=== PATIENT | female | born 2000 | race Caucasian/White ===

== ENCOUNTER 2022-07-28 07:15 | Emergency (ER) | payer OTHER, SELFPAY ==
[2022-07-28 07:24] VITALS: BP 140/87; PULSE 104; RESP 19; TEMP 37; O2SAT 99
--- NOTE | 2022-07-28 07:52 | ED_ITS ---
HPI - Female Genitourinary General Chief complaint: Urogenital-Female Stated complaint: UTI Time Seen by Provider: 07/28/22 07:37 Source: patient Mode of arrival: ambulatory Limitations: no limitations History of Present Illness HPI Narrative: Patient presented to the emergency department complaining of dysuria frequency she was seen in the urgent care yesterday started on nitrofurantoin. Denies any vomiting diarrhea fever MD elicited complaint: dysuria and UTI Onset (ago): day(s) (3) Severity: mild Female Urogenital Radiation: Non-Radiating Quality of pain: cramping Consistency: constant Vaginal discharge: none Vaginal bleeding: none Urinary symptoms: Dysuria Relieving factors: none Patient : No Related Data Previous Rx's Medication Instructions Recorded phenazopyridine 200 mg tablet 200 mg PO TID 6 doses #6 tabs 07/28/22 (Pyridium) Allergies Allergy/AdvReac Type Severity Reaction Status Date / Time sulfamethoxazole Allergy Intermediate NAUSEA, Unverified 05/02/20 19:38 [From BACTRIM] SHAKINESS trimethoprim [From BACTRIM] Allergy Intermediate NAUSEA, Unverified 05/02/20 19:38 SHAKINESS Sulfa (Sulfonamide Allergy Unknown Verified 10/20/18 00:00 Antibiotics) Review of Systems Constitutional: Constitutional: Reports no additional constitutional complaints ENT: Reports system reviewed and no additional complaints, except as documented Cardiovascular: Cardiovascular: Reports no additional cardiovascular complaint s Respiratory: Respiratory: Reports no additional respiratory complaints Genitourinary: Genitourinary: Reports as per HPI and Reports difficulty voiding Neurologic: Reports system reviewed and no additional complaints, except as documented [facility] Social History Social History Advance Directives: Yes Advance Directives Information Provided: Yes Advance Directives on File: No Patient : No Physical Exam Vital Signs: Vital Signs: Last Vital Signs Temp 98.2 F 07/28/22 10:20 Pulse 92 07/28/22 11:15 Resp 16 07/28/22 11:15 BP 115/69 07/28/22 11:15 Pulse Ox 100 07/28/22 11:15 O2 Del Method 07/28/22 11:15 BMI result Body Mass Index 20.0 Const: General: cooperative Nutritional Appearance: average body habitus Orientation/consciousness: patient oriented x3 HEENT: Head: Yes normal to inspection General nose exam: Normal external nose present Face and sinus: Yes normal facial exam Mouth: Normal oral and palatal mucosa present Chest: Chest palpation & inspection: normal inspection of the chest Resp: Effort & Inspection: normal respiratory effort Cardio: Jugular venous distension: no JVD Rate: regular rate GI: Inspection: Yes normal to inspection Palpation (GI): Soft to palpation, not firm, nontender and no guarding Skin: General skin exam: no rashes or lesions noted, elasticity normal and turgor normal Lesions: no lesions Rashes: no rashes Neuro: General: patient oriented x3 Course Reevaluation(s) Reevaluation #1: UA is consistent with the UTI, patient just started yesterday macrobid 100 mg b.i.d. for 5 days, I will add the Pyridium for symptomatic relief of Medical Decision Making Differential Diagnosis Differential Diagnoses: The differential diagnosis associated with the presentation includes uti/std Lab Data MDM Lab Attestation statement: I reviewed the patient's lab results. Labs: Lab Results 07/28/22 07/28/22 Range/Units 08:30 08:30 Urine Color Dark Yellow Urine Appearance Cloudy Urine pH 8.5 (5.0-9.0) Ur Specific [place] 1.010 (1.005-1.025) Urine Protein 30 (1+) H (Neg-Trace) mg/dL Urine Glucose (UA) Negative (Negative) mg/dL Urine Ketones Negative (Negative) mg/dL Urine Blood Moderate (2+) H (Negative) Urine Nitrite Negative (Negative) Ur Leukocyte Esterase Large (3+) H (Negative) Urine RBC >20 H (0-2) /HPF Urine WBC >50 H (0-5) /HPF Ur Squamous Epith Cells 0-2 (0-2) /HPF Urine Bacteria Trace (None Seen) Hyaline Casts 0-2 (0-2) /LPF Urine Test NEGATIVE (NEGATIVE) Discharge Plan Discharge Clinical Impression: Urinary tract infection Patient Disposition: Home, Self-Care Instructions: Urinary Tract Infection in Women (ED) Additional Instructions: Continue with the Macrobid 100 mg b.i.d., I will send to the pharmacy pyridium for symptoms of burning Prescriptions: New phenazopyridine [Pyridium] 200 mg tablet 200 mg PO TID Qty: 6 0RF Interventions: ED Discharge Assessment Last Done: 07/28/22 11:44 Discharge Date/Time: 07/28/22 11:45
[2022-07-28 08:10] VITALS: BP 115/81; PULSE 98; RESP 16; O2SAT 100
--- NOTE | 2022-07-28 08:15 | PC.NURSE ---
pt. alert and oriented. complains of dysuria, hematuria and burning when urinating, she has intermitten pelvic cramping pain 3/10. waiting of urine sample to test for UTI. she already provided sample for CT ng
[2022-07-28 08:40] LABS: Appearance Urine Cloudy; Color Urine Dark Yellow; Glucose Urine UA Negative (Negative); Leukocyte Esterase Urine Large (3+) (Negative); Nitrite Urine Negative (Negative); PH 8.5 (5.0-9.0); UMIC TRIGGER UACC YES; Urine Blood Moderate (2+) (Negative); Urine Ketones Negative (Negative); Urine Protein 30 (1+) mg/dL (Neg-Trace)
[2022-07-28 08:42] LABS: UPreg QC Valid YES; Urine Pregnancy NEGATIVE (NEGATIVE)
[2022-07-28 08:45] LABS: Bacteria Urine Trace (None Seen); Hyaline Casts Urine 0-2 /LPF (0-2); RBC Urine >20 /HPF (0-2); Squamous Epithelial Cell Urine 0-2 /HPF (0-2); UACC Culture Trigger YES; WBC Urine >50 /HPF (0-5)
[2022-07-28 10:20] VITALS: BP 105/72; PULSE 86; RESP 14; TEMP 36.8; O2SAT 98
[2022-07-28 11:15] VITALS: BP 115/69; PULSE 92; RESP 16; O2SAT 100
[2022-07-28 18:21] LABS: CT PCR NOT DETECTED (Not Detect.); NG PCR DETECTED (Not Detect.)
== END 2022-07-28 11:45 | disposition home or self-care (01) ==
PROVIDERS: Emergency Provider Emergency Medicine; PCP Physician Assistant
DX: N39.0 Urinary tract infection, site not specified (principal); Z20.822 Contact with and (suspected) exposure to COVID-19; Z79.899 Other long term (current) drug therapy
CPT/HCPCS: 81001; 81025; 87086; 87491; 87591; 99283; 99284

== ENCOUNTER 2022-07-30 09:50 | Emergency (ER) | payer OTHER, SELFPAY ==
--- NOTE | 2022-07-30 10:06 | ED.FEMALEGU ---
HPI - Female Genitourinary General Chief complaint: Urogenital-Female Stated complaint: burning upon urination Time Seen by Provider: 07/30/22 10:05 Source: patient and old records reviewed Mode of arrival: ambulatory Limitations: no limitations History of Present Illness HPI Narrative: 22 yo female presenting for treatment of Gonorrhea. She was here in the ER on 07/28 for urinary symptoms including dysuria and frequency. Her urinalysis was positive. A CT / NG PCR was also sent from her urine and noted to be positive. she was discharged on Macrobid and never treated for STI. She has been with the same partner and was not worried about STI. she is back today for treatment of gonorrhea. She denies any pelvic pain, abdominal pain, nausea, vomiting or fevers. MD elicited complaint: dysuria Onset (ago): day(s) Location of symptoms: vaginal Severity: moderate Female Urogenital Radiation: Non-Radiating Severity scale (1-10): 5 Quality of pain: burning Consistency: intermittent Vaginal discharge: white Vaginal bleeding: none Urinary symptoms: Dysuria and Frequency Exacerbating factors: urination Relieving factors: none Associated symptoms: denies other symptoms Treatment prior to arrival: none Sexual activity: Yes Patient : No Related Data Previous Rx's Medication Instructions Recorded phenazopyridine 200 mg tablet 200 mg PO TID 6 doses #6 tabs 07/28/22 (Pyridium) Allergies Allergy/AdvReac Type Severity Reaction Status Date / Time sulfamethoxazole Allergy Intermediate NAUSEA, Unverified 05/02/20 19:38 [From BACTRIM] SHAKINESS trimethoprim [From BACTRIM] Allergy Intermediate NAUSEA, Unverified 05/02/20 19:38 SHAKINESS Sulfa (Sulfonamide Allergy Unknown Verified 10/20/18 00:00 Antibiotics) Review of Systems Review of Systems: Constitutional: No Fever, No Chills Cardiovascular: No Chest Pain, No SOB Gastrointestinal: No Nausea, No Vomiting, No Diarrhea, No abdominal Pain Genitourinary: + Dysuria, + Urinary Frequency, No Hematuria, +vaginal discharge Musculoskeletal: No joint pain, No Myalgias Skin: No Skin Lesions, No rash Psych: + Anxiety/Panic, No Depression Heme/Lymph: No Lymphadenopathy PMFSH Social History Social History Advance Directives: No Advance Directives Information Provided: No Physical Exam Vital Signs: Vital Signs: Last Vital Signs Temp 98.0 F 12/15/22 10:15 Pulse 78 07/30/22 10:15 Resp 14 07/30/22 10:15 BP 134/78 07/30/22 10:15 Pulse Ox 97 07/30/22 10:15 O2 Del Method 07/30/22 10:15 BMI result Body Mass Index 22.4 Appearance: Alert. Oriented X3. No acute distress. HEENT: normal inspection CVS: Normal heart rate and rhythm. Pulses normal. Respiratory: No respiratory distress. Pelvic deferred Skin: Skin warm and dry. Normal skin color. Normal skin turgor. No rashes. Extremities: Normal inspection x4, normal range of motion. Neuro: Oriented X 3. Grossly normal, nonfocal. Tearful. Course Course Course Narrative: 22-year-old female presenting for treatment of gonorrhea. She tested positive for gonorrhea 2 days ago. She has been experiencing urinary symptoms. No pelvic pain or evidence of PID. Will treat with 500 mg of IM Rocephin. She is in the process of talking to her partner to see how she got this infection. She was encouraged follow-up with a [facility] for further STI testing such as HIV and syphilis. She has no external lesions per her report. She will follow-up with her OBGYN. Stable for d/c home. Medications Administered Discontinued Medications Generic Name Dose Route Start Last Admin Trade Name Axel PRN Reason Stop Dose Admin Ceftriaxone Sodium 500 mg/ 0 mg 07/30/22 10:05 07/30/22 10:25 Lidocaine HCl 1 ml IM 07/30/22 10:06 1 kit ONCE ONE Administration Discharge Plan Discharge Clinical Impression: Gonorrhea Patient Disposition: Home, Self-Care Instructions: Gonorrhea (ED) Additional Instructions: You tested positive for gonorrhea on July 28. You are negative for chlamydia. Your urine culture on the was negative for UTI. Your symptoms are most likely due to gonorrhea. Your treated for gonorrhea today with intramuscular antibiotic. inform your partner that your positive and treated today. Refrain from any sexual activity into her symptoms are completely resolved. Recommend additional STI testing at a local [facility]. Prescriptions: No Action phenazopyridine [Pyridium] 200 mg tablet 200 mg PO TID Qty: 6 0RF Interventions: ED Discharge Assessment Last Done: 07/30/22 10:27 Discharge Date/Time: 07/30/22 10:27
[2022-07-30 10:15] VITALS: BP 134/78; PULSE 78; RESP 14; TEMP 36.7; O2SAT 97; BMI 22.4
--- OUTSIDE RECORDS SUMMARY | 2022-07-30 10:22 | XMS_ITS ---
:2000 Author Care Team Providers Name Role Phone DEN TOVAR MD Primary Care Provider [phone] Allergies Code Code System Name Reaction Severity Status Onset 278000 RxNorm Bactrim ? ? Active ? Medications Name Status Start Date Stop Date ? ? cefuroxime axetil 500 mg tablet Completed ? 03/11/2019 Elinest 0.3 mg-30 mcg tablet Active ? Not available Take 1 tablet every day by oral route for 28 days. fexofenadine 180 mg tablet Active ? Not a vailable montelukast 10 mg tablet Active ? Not gabriela ilable ondansetron HCl 4 mg tablet Completed ? 02/14 Problems None recorded. Procedures Date Name Performed by ? ? Extraction of [place] Information n ot available Results Lab Results Date Name Specimen Result Interpretation Description Value Range Status Address ? 03/11/2019 Test, Urine ? Hcg negative ? ? [facility] [place]: [address] [facility], [place] [facility] Past Encounters None recorded. Social History Tobacco Smoking Status Never Smoker Vaccine List None recorded. Plan of Care Reminders Provider Appointments None recorded. ? ? Lab None recorded. ? ? Referral None recorded. ? ? Procedures None recorded. ? ? Surgeries None recorded. ? ? Imaging None recorded. ? ? Vitals Blood Pressure 128/83 mm[Hg]
[2022-07-30] MEDS: cefTRIAXone sodium 500 MG, Lidocaine HCl 1 % MPF 1 ML IM (10:25)
== END 2022-07-30 10:27 | disposition home or self-care (01) ==
PROVIDERS: Emergency Provider Student in an Organized Health Care Education/Training Program; PCP Physician Assistant
DX: A54.9 Gonococcal infection, unspecified (principal); R30.0 Dysuria; R35.0 Frequency of micturition
CPT/HCPCS: 96372; 99282; 99284; J0696